=== PATIENT | female | born 1975 ===

== ENCOUNTER 2018-06-16 13:29 | Emergency (ER) | payer SELFPAY ==
[2018-06-16 13:29] VITALS: BMI 30.1
[2018-06-16 14:34] VITALS: RESP 18; O2SAT 99
[2018-06-16 17:16] VITALS: BP 120/74; PULSE 80; TEMP 98
--- NOTE | 2018-06-16 17:37 | ED PDOC ---
HPI: Skin/Bite Injury Time Seen by Provider: 06/16/18 15:21 Chief Complaint (Nursing): Abnormal Skin Integrity Chief Complaint (Provider): Abnormal Skin Integrity History Per: Patient History/Exam Limitations: no limitations Onset/Duration Of Symptoms: Days (x5) Current Symptoms Are (Timing): Still Present Additional Complaint(s): 42 year old female presents to the ED with 5 day history of itchy, red skin around both eyes. Patient initially had an area of swelling which has since subsided but is still itchy and irritated. Patient denies any visual changes including blurry vision and double vision. She states she was seen at an urgent care in [place] x5 days ago and was started on oral antibiotics and topical antibiotics. She reports itchiness and redness has worsened since starting medications. PMD: none Past Medical History Reviewed: Historical Data, Nursing Documentation, Vital Signs Vital Signs: Last Vital Signs Temp 98.0 F 06/16/18 17:15 Pulse 80 06/16/18 17:15 Resp 18 06/16/18 17:15 BP 120/74 06/16/18 17:15 Pulse Ox 99 06/16/18 17:15 - Medical History PMH: Fractures (skull), Migraine - Surgical History Surgical History: Appendectomy, Cholecystectomy - Family History Family History: States: Unknown Family Hx - Immunization History Hx Tetanus Toxoid Vaccination: No Hx Influenza Vaccination: No Hx Pneumococcal Vaccination: No - Home Medications Home Medications: Ambulatory Orders Medication Instructions Recorded Ondansetron ODT [Zofran ODT] 1 odt PO BID PRN #6 odt 01/22/18 predniSONE [Prednisone] 40 mg PO DAILY 5 Days tab 06/16/18 predniSONE [Prednisone] 50 mg PO DAILY #5 tab 06/16/18 - Allergies Allergies/Adverse Reactions: Allergies Allergy/AdvReac Type Severity Reaction Status Date / Time shellfish derived Allergy Severe VOMITING Verified 05/26/17 10:42 Review of Systems ROS Statement: Except As Marked, All Systems Reviewed And Found Negative Eyes: Positive for: Redness, Other (swelling and itchiness to both eyes). Negative for: Vision Change Physical Exam - Reviewed Nursing Documentation Reviewed: Yes Vital Signs Reviewed: Yes - Physical Exam Appears: Positive for: Non-toxic, No Acute Distress Head Exam: Positive for: ATRAUMATIC, NORMOCEPHALIC Skin: Positive for: Normal Color, Warm, Dry Eye Exam: Positive for: EOMI, PERRL, Other (PERIORBITAL SKIN: Erythema with (+) dryness, (+) positive itching to upper and lower eyelids; Eyes: (-) injection, (-) discharge) ENT: Positive for: Normal ENT Inspection, Other (mouth: (-) tongue swelling) Neck: Positive for: Normal, Painless ROM Cardiovascular/Chest: Positive for: Regular Rate, Rhythm Respiratory: Positive for: Normal Breath Sounds. Negative for: Wheezing, Respiratory Distress Extremity: Positive for: Normal ROM Neurologic/Psych: Positive for: Alert, Oriented. Negative for: Motor/Sensory Deficits - ECG O2 Sat by Pulse Oximetry: 99 (RA) Pulse Ox Interpretation: Normal Medical Decision Making Medical Decision Making: Initial Plan: --Prednisone 60mg PO Exam, as above, is consistent with contact dermatitis. Patient advised to discontinue all ointments and lotions. Patient advised to take benadryl x3 times a day and Prednisone. If symptoms persist, patient advised to follow up with health practice manager. Scribe Attestation: Documented by Reginaldo Watson acting as a scribe for Marine BLEDSOE. Provider Scribe Attestation: All medical record entries made by the Scribe were at my direction and personally dictated by me. I have reviewed the chart and agree that the record accurately reflects my personal performance of the history, physical exam, medical decision making, and the department course for this patient. I have also personally directed, reviewed, and agree with the discharge instructions and disposition. Disposition - Clinical Impression Clinical Impression: Contact dermatitis - Disposition Referrals: Nini Fu MD [Medical Doctor] - Disposition: Routine/Home Disposition Time: 17:50 Condition: STABLE Additional Instructions: take benadryl 50 mg three times per day. Prescriptions: predniSONE [Prednisone] 50 mg PO DAILY #5 tab predniSONE [Prednisone] 40 mg PO DAILY 5 Days tab Instructions: Contact Dermatitis (DC) Forms: [facility] (Martiniquais)
== END 2018-06-16 17:15 | disposition home or self-care (01) ==
LOC: H.ER 13:29
DX: L25.9 Unspecified contact dermatitis, unspecified cause (principal)